=== PATIENT | female | born 1985 | race Hispanic/Latino ===

== ENCOUNTER → 2017-07-03 | Outpatient (CLI) | payer OTHER, SELFPAY ==
--- NOTE | 2017-07-03 12:48 | REP ---
Supine abdomen two views: There are no comparisons. The bowel gas pattern is normal. There are no calcifications. Skeletal structures and soft tissues are otherwise unremarkable. Impression: Normal bowel gas pattern. Signed by Jer Duron MD 07/03/2017 12:39 P
== END ==
LOC: M WUC 11:56
PROVIDERS: ATTEND Physician Assistant
DX: K59.00 Constipation, unspecified (principal); R10.32 Left lower quadrant pain; R10.12 Left upper quadrant pain